=== PATIENT | female | born 1995 | race Caucasian/White ===

== ENCOUNTER → 2023-01-04 11:46 | Outpatient (CLI) | payer BC, SELFPAY ==
--- NOTE | ~2023-01-04 | US_ITS ---
EXAMINATION: US renal BI DATE: 01/04/2023 12:04 INDICATION: Unspecified abdominal pain TECHNIQUE: Multiple ultrasound grayscale images of the kidneys were obtained. COMPARISON: None. FINDINGS: The right kidney measures 9.0 x 3.9 x 5.1 cm. The left kidney measures 8.9 x 5.8 x 5.3 cm. The kidney s demonstrate normal echogenicity. There are peripheral echogenic foci associated with 2.1 cm and 2.0 cm left renal cysts. 8 mm echogenic lesion at the upper pole of the left kidney. There is no hydrone phrosis in either kidney. The bladder is normal. IMPRESSION: 1. 8 mm echogenic lesion at the upper pole the left kidney and small echogenic foci along the periph alfredo of a couple approximately 2 cm left renal cyst. These could represent renal stones and cyst wall calcifications respectively but would include recommend follow-up low-dose noncontrast renal stone pr otocol CT for more definitive determination. Reviewed, dictated and finalized at location [facility]. IMPRESSION: 1. 8 mm echogenic lesion at the upper pole the left kidney and small echogenic foci along the periphery of a couple approximately 2 cm left renal cyst. These could represent renal stones and cyst wall calcifications respectively but wou ld include recommend follow-up low-dose noncontrast renal stone protocol CT for more definitive determination.
== END ==
PROVIDERS: PCP Nurse Practitioner Family; Visit Provider Nurse Practitioner Family
DX: R10.9 Unspecified abdominal pain (principal)
CPT/HCPCS: 76775

== ENCOUNTER → 2023-01-08 09:31 | Outpatient (CLI) | payer BC, SELFPAY ==
--- NOTE | ~2023-01-08 | CT_ITS ---
Non-contrast CT scan of the Abdomen and Pelvis Clinical indication: Renal stone Technique: 2.5 mm axial scans were obtained through the abdomen and pelvis without intravenous or or al contrast. Dose reduction technique was used on this scan by utilizing automated exposure control a nd iterative reconstruction technique. The dose-length product (DLP) was 300.90 mGy-cm. Findings: Images through the lung bases reveal no abnormalities. Punctate nonobstructing left renal stone noted. No other renal or ureteral stones seen. No hydronephr osis. The liver, spleen, pancreas, gallbladder, and adrenals appear normal. There is no aortic aneurysm. There is no evidence of bowel obstruction. Normal appendix. Images through the pelvis were performed. There is no evidence of ascites or lymphadenopathy. Urinary bladder unremarkable. No adnexal mass evident. Impression: Punctate nonobstructing left renal stone, otherwise unremarkable exam. Reviewed, dictated and finalized at [facility]. Impression: Punctate nonobstructing left renal stone, otherwise unremarkable exam.
== END ==
PROVIDERS: PCP Nurse Practitioner Family; Visit Provider Nurse Practitioner Family
DX: R93.429 Abnormal radiologic findings on diagnostic imaging of unspecified kidney (principal); N20.0 Calculus of kidney
CPT/HCPCS: 74176